=== PATIENT | male | born 1985 | race African-American/Black ===

== ENCOUNTER 2020-05-16 13:48 | Emergency (ER) | payer OTHER ==
[2020-05-16] MEDS ORDERED: TETANUS & DIPHTHERIA TOX,ADULT 0.5 ML VIAL ONE (14:27)
[2020-05-16] MEDS ORDERED: LIDOCAINE 1% MPF 30 ML VIAL ONE (14:27)
[2020-05-16] MEDS ORDERED: HYDROCODONE/APAP 10/325 TAB ONE (14:27)
--- NOTE | 2020-05-16 15:41 | EDPHYS ---
Physician Documentation [facility] Name: Rosanne Joel Age: 34 yrs Sex: Male : 1985 Arrival Date: 05/16/2020 Time: 13:53 Bed 14 Private MD: ED Physician Steve Abraham HPI: 05/16 14:16 This 34 yrs old Black Male presents to ER via Ambulatory with complaints of Abscess. pm1 14:16 The patient presents with an abscess of the right axilla. Description: fluctuant, pm1 raised. Onset: The symptoms/episode began/occurred 1 week(s) ago. Possible cause(s): ingrown hair from shaving. Associated signs and symptoms: Pertinent negatives: discharge, drainage, fever. Modifying factors: the symptoms are alleviated by keeping arm up, the symptoms are aggravated by putting arm down. Severity of symptoms: in the emergency department the symptoms are actually worse. The patient has experienced similar episodes in the past, a few times, and the symptoms today are exactly the same, to previous axilla abscess. The patient has not recently seen a physician. Historical: - Allergies: 14:04 No Known Allergies; iw - Home Meds: 14:04 None [Active]; iw - PMHx: 14:04 None; iw - PSHx: 14:04 None; iw - Immunization history:: Adult Immunizations not up to date. - Social history:: Smoking status: Patient reports the use of cigarette tobacco products, smokes one-half pack cigarettes per day. ROS: 14:16 Constitutional: Negative for fever, chills, and weight loss, Cardiovascular: Negative pm1 for chest pain, palpitations, and edema, Respiratory: Negative for shortness of breath, cough, wheezing, and pleuritic chest pain, MS/Extremity: Negative for injury and deformity. 14:16 Skin: Positive for abscess, of the right axilla, Negative for cellulitis. 14:16 Neuro: Negative for numbness or tingling to right hand. 14:16 All other systems are negative. Exam: 14:16 Constitutional: This is a well developed, well nourished patient who is awake, alert, pm1 and in no acute distress. Head/Face: Normocephalic, atraumatic. 14:16 Musculoskeletal/extremity: Exam is negative for acute changes. 14:16 Skin: Appearance: normal except for affected area, abscess, that is moderate sized, approximately 4 cm(s), of the right axilla, with fluctuance, no drainage, surrounding cellulitis. 14:16 Neuro: Exam negative for acute changes, Orientation: is normal, Motor: is normal, moves all fours, Sensation: is normal, no obvious gross deficits. Vital Signs: 14:03 BP 174 / 110; Pulse 72; Resp 16; Temp 97.6; Pulse Ox 98% on R/A; Weight 106.14 kg; iw Height 5 ft. 9 in. (175.26 cm); Pain 5/10; 15:28 BP 149 / 99; Pulse 80; Resp 17; Pulse Ox 99% on R/A; ll1 14:03 Body Mass Index 34.56 (106.14 kg, 175.26 cm) iw Procedures: 14:39 I \T\ D: Incision and drainage was performed for an abscess of the right axilla. Prepped pm1 with Betadine, Anesthetized with 5 ml's 1% Lidocaine. Incised with #11 blade. Drained moderate amount serosanguinous fluid. Loculations removed. Cultures obtained. Abscess cavity explored. Packed with iodoform gauze, Dressing: sterile 4x4 gauze, the patient tolerated the procedure well. MDM: 14:06 Patient medically screened. pm1 15:39 Data reviewed: vital signs. Data interpreted: Pulse oximetry: on room air is 99 %. pm1 Interpretation: normal. Counseling: I had a detailed discussion with the patient and/or guardian regarding: the historical points, exam findings, and any diagnostic results supporting the discharge/admit diagnosis, the need for outpatient follow up, for definitive care, a general surgeon, to return to the emergency department if symptoms worsen or persist or if there are any questions or concerns that arise at home, May return here for wound evaluation if unable to see MD outpatient due to office's covid limitiations. 05/16 14:14 Order name: Wound Culture pm1 05/16 14:14 Order name: Incision \T\ Drainage Setup; Complete Time: 14:37 pm1 Administered Medications: 14:30 Drug: Tetanus-Diphtheria Toxoid Adult 0.5 ml {Water Main Inspector: [employer]. Exp: ll1 10/18/2022. Lot #: [id number]. } Route: IM; Site: left deltoid; 14:30 Drug: [place] 10 mg-325 mg 1 tabs Route: PO; ll1 Disposition: 17:47 Co-signature as Attending Physician, Steve Abraham MD. rn Disposition: 05/16/20 15:40 Discharged to Home. Impression: Cutaneous abscess of right axilla. - Condition is Stable. - Discharge Instructions: Skin Abscess, Incision and Drainage. - Prescriptions for Bactrim DS 800- 160 mg Oral Tablet - take 1 tablet by ORAL route every 12 hours for 10 days; 20 tablet. Tylenol- Codeine #3 300-30 mg Oral Tablet - take 2 tablets by ORAL route every 6 hours As needed; 20 tablet. - Medication Reconciliation Form, Thank You Letter, Antibiotic Education, Prescription Opioid Use form. - Follow up: Emergency Department; When: As needed; Reason: Worsening of condition. Follow up: Anand Tang MD; When: 2 - 3 days; Reason: Wound Recheck, Recheck today's complaints, Continuance of care, Re-evaluation by your physician. - Problem is new. - Symptoms have improved. Signatures: Dispatcher [employer] EDJustine Michael RN RN iw Nieto, Roman, MD MD rn Marinas, Patrick, JERRY MEDICAID COLLECTION SPECIALIST pm1 Carlota Sheikh RN RN ll1 Corrections: (The following items were deleted from the chart) 16:18 15:40 05/16/2020 15:40 Discharged to Home. Impression: Cutaneous abscess of right ll1 axilla. Condition is Stable. Forms are Medication Reconciliation Form, Thank You Letter, Antibiotic Education, Prescription Opioid Use. Follow up: Emergency Department; When: As needed; Reason: Worsening of condition. Follow up: Anand Tang; When: 2 - 3 days; Reason: Wound Recheck, Recheck today's complaints, Continuance of care, Re-evaluation by your physician. Problem is new. Symptoms have improved. pm1
--- NOTE | 2020-05-16 15:41 | ER ---
Nurse's Notes [facility] Name: Rosanne Joel Age: 34 yrs Sex: Male : 1985 Arrival Date: 05/16/2020 Time: 13:53 Bed 14 Private MD: Diagnosis: Cutaneous abscess of right axilla Presentation: 05/16 14:03 Chief complaint: Patient states: abscess to right axilla X 1 week, worse over past 3-4 iw days. Coronavirus screen: At this time, the client does not indicate any symptoms associated with coronavirus-19. Ebola Screen: Patient negative for fever greater than or equal to 101.5 degrees Fahrenheit, and additional compatible Ebola Virus Disease symptoms Patient denies exposure to infectious person. Patient denies travel to an Ebola-affected area in the 21 days before illness onset. No symptoms or risks identified at this time. Initial Sepsis Screen: Does the patient meet any 2 criteria? No. Patient's initial sepsis screen is negative. Does the patient have a suspected source of infection? No. Patient's initial sepsis screen is negative. Risk Assessment: Do you want to hurt yourself or someone else? Patient reports no desire to harm self or others. Onset of symptoms was May 09, 2020. 14:03 Method Of Arrival: Ambulatory iw 14:03 Acuity: DAMIÁN 4 iw Historical: - Allergies: 14:04 No Known Allergies; iw - Home Meds: 14:04 None [Active]; iw - PMHx: 14:04 None; iw - PSHx: 14:04 None; iw - Immunization history:: Adult Immunizations not up to date. - Social history:: Smoking status: Patient reports the use of cigarette tobacco products, smokes one-half pack cigarettes per day. Assessment: 14:15 General: Appears uncomfortable, Behavior is calm, cooperative. Pain: Complains of pain ll1 in R axilla Pain currently is 0 out of 10 on a pain scale. Quality of pain is described as aching, tender, Pain began about 1 week ago Aggravated by increased activity. Neuro: No deficits noted. Cardiovascular: No deficits noted. Respiratory: No deficits noted. Derm: Abscess located on R axilla is golf ball sized, has no drainage, is hot to touch, is red, is raised, Reports pain R axilla abscess. 15:30 Reassessment: Patient and/or family updated on plan of care and expected duration. Pain ll1 level reassessed. Patient is alert, oriented x 3, equal unlabored respirations, skin warm/dry/pink. Bedside I\T\D in progress. Vital Signs: 14:03 BP 174 / 110; Pulse 72; Resp 16; Temp 97.6; Pulse Ox 98% on R/A; Weight 106.14 kg; iw Height 5 ft. 9 in. (175.26 cm); Pain 5/10; 15:28 BP 149 / 99; Pulse 80; Resp 17; Pulse Ox 99% on R/A; ll1 14:03 Body Mass Index 34.56 (106.14 kg, 175.26 cm) iw ED Course: 13:53 Patient arrived in ED. mr 14:04 Triage completed. iw 14:04 Arm band placed on. iw 14:06 Pérez Pierce NP is PHCP. pm1 14:06 Steve Abraham MD is Attending Physician. pm1 14:07 Carlota Sheikh RN is Primary Nurse. ll1 15:40 Anand Tang MD is Referral Physician. pm1 Administered Medications: 14:30 Drug: Tetanus-Diphtheria Toxoid Adult 0.5 ml {Import/Export Analyst: [employer]. Exp: ll1 10/18/2022. Lot #: [id number]. } Route: IM; Site: left deltoid; 14:30 Drug: [place] 10 mg-325 mg 1 tabs Route: PO; ll1 Outcome: 15:40 Discharge ordered by MD. pm1 16:18 Patient left the ED. ll1 Signatures: Rivka Daley Irene, RN RN iw Pérez Pierce NP WAISTLINE JOINER pm1 Carlota Sheikh RN RN ll1 Corrections: (The following items were deleted from the chart) 14:10 14:03 Pulse 72bpm; Resp 16bpm; Pulse Ox 98% RA; Temp 97.6F; 106.14 kg; Height 5 ft. 9 iw in.; BMI: 34.5; Pain 5/10; iw
[2020-05-16] MEDS ORDERED: SMZ./TMP. 800/160 MG TABLET ONE (15:59)
[2020-05-16] MEDS ORDERED: KETOROLAC 30 MG/ML INJ ONE (15:59)
[2020-05-16 16:29] VITALS: TEMP 97.6
[2020-05-16 16:30] VITALS: BP 149/99; O2SAT 99
== END 2020-05-16 16:18 | disposition home or self-care (01) ==
LOC: ER 13:48
PROC: 0J9F0ZZ Drainage of Left Upper Arm Subcutaneous Tissue and Fascia, Open Approach (ICD-10-PCS; principal; 2020-05-16)
DX: L02.411 Cutaneous abscess of right axilla (principal); Z23 Encounter for immunization; F17.210 Nicotine dependence, cigarettes, uncomplicated
CPT/HCPCS: 87070; 87205; 90471; 90714; 99282